=== PATIENT | female | born 1990 | race Caucasian/White ===

== ENCOUNTER 2016-06-24 15:26 | Emergency (ER) | payer MEDICARE, BC, MEDICAID ==
[2016-06-24 15:43] VITALS: BP 135/71
--- NOTE | 2016-06-24 16:21 | EDM.PDOC ---
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 She is about 14 weeks gestation. She complains of abdominal pain for about the last 2 weeks. She describes it mostly in her left lower quadrant. She says when she presses against the uterus it hurts. 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 There's been no nausea vomiting no dysuria no vaginal bleeding. 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 Psychiatric History: Reports: Anxiety, Panic attack - Infectious Disease History Infectious Disease History: Reports: Chicken pox Social & Family History - Tobacco Use Smoking Status *Q: Former Smoker Years of Tobacco use: 8 Packs/Tins Daily: 0.2 Used Tobacco, but Quit: Yes Month Tobacco Last Used: 2 Second Hand Smoke Exposure: Yes - Caffeine Use Caffeine Use: Reports: Coffee - Alcohol Use Days Per Week of Alcohol Use: 2 Number of Drinks Per Day: 6 Total Drinks Per Week: 12 - Recreational Drug Use Recreational Drug Use: No - Living Situation & Occupation Living situation: Reports: single, with significant other, assisted living Occupation: disabled ED ROS GENERAL - Review of Systems Review Of Systems: ROS reveals no pertinent complaints other than HPI. ED EXAM - Physical Exam Exam: See Below Exam Limited By: No limitations General Appearance: alert, WD/WN, no apparent distress GI/Abdominal: other (Uterine size is barely palpable consistent with her dates. There some mild tenderness in the left lower quadrant which I think is probably some ligamentous tenderness. heart tones were normal.) Course - Vital Signs Last Recorded V/S: Last Vital Signs Temp 36.7 C 06/24/16 15:38 Pulse 91 06/24/16 15:38 Resp 18 06/24/16 15:38 BP 135/71 06/24/16 15:38 Pulse Ox Departure - Departure Time of Disposition: 16:19 Disposition: Home, Self-Care 01 Condition: good Clinical Impression: Abdominal pain during in second trimester Forms: ED Department Discharge Additional Instructions: This appears to be some ligamentous pain which is very common in . It' s not anything serious. Try taking regular Tylenol. Just follow the package instructions. get as much rest as you can. It's okay to continue working
== END 2016-06-24 16:40 | disposition home or self-care (01) ==
LOC: JP.ED 15:26
DX: O99.89 Other specified diseases and conditions complicating pregnancy, childbirth and the puerperium (principal); R10.32 Left lower quadrant pain; K21.9 Gastro-esophageal reflux disease without esophagitis; F41.9 Anxiety disorder, unspecified; Z88.2 Allergy status to sulfonamides; Z91.09 Other allergy status, other than to drugs and biological substances; Z87.891 Personal history of nicotine dependence; Z87.440 Personal history of urinary (tract) infections; Z3A.14 14 weeks gestation of pregnancy
CPT/HCPCS: 99283; 99284

== ENCOUNTER 2016-07-12 20:16 | Emergency (ER) | payer MEDICARE, BC, MEDICAID ==
[2016-07-12 20:27] VITALS: BP 131/85
--- NOTE | 2016-07-12 20:48 | EDM.PDOC ---
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 She is rating it at a 7. She works in [employer] in [place] and she does do some lifting. She has no spotting or change in discharge. Timing/Duration: Reports: Hour(s):, Other ( started to have the pain at work today. ) Location: [facility] Quality: Reports: cramping, other ( comes and goes. ) Associated Symptoms (-Female): Reports: denies other symptoms - Related Data Allergies/ADRs: Allergies Allergy/AdvReac Type Severity Reaction Status Date / Time shrimp Allergy Difficulty Verified 06/03/16 18:57 Swallowing Sulfa (Sulfonamide Allergy Rash Verified 06/03/16 18:57 Antibiotics) Home Meds: Home Meds Acetaminophen [Tylenol] 1 - 2 tab PO ASDIRECTED PRN 05/07/15 [History] Vits #93/Iron Fum/FA [ Formula Tablet] 1 tab PO BEDTIME [History] Past Medical History HEENT History: Reports: Impaired vision Gastrointestinal History: Reports: GERD Genitourinary History: Reports: UTI, recurrent 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 Psychiatric History: Reports: Anxiety, Panic attack - Infectious Disease History Infectious Disease History: Reports: Chicken pox Social & Family History - Tobacco Use Smoking Status *Q: Never Smoker Years of Tobacco use: 8 Packs/Tins Daily: 0.2 Used Tobacco, but Quit: Yes Month Tobacco Last Used: 2 Second Hand Smoke Exposure: Yes - Caffeine Use Caffeine Use: Reports: Coffee - Alcohol Use Days Per Week of Alcohol Use: 2 Number of Drinks Per Day: 6 Total Drinks Per Week: 12 - Recreational Drug Use Recreational Drug Use: No - Living Situation & Occupation Living situation: Reports: single, with significant other, assisted living Occupation: disabled ED ROS GENERAL - Review of Systems Review Of Systems: See Below Constitutional: Reports: no symptoms HEENT: Reports: No symptoms Respiratory: Reports: No Symptoms Cardiovascular: Reports: No symptoms Endocrine: Reports: no symptoms GI/Abdominal: Reports: Other ( Pt has had normal bms. ) : Reports: no symptoms Musculoskeletal: Reports: no symptoms Skin: Reports: no symptoms ED EXAM, GI/ABD - Physical Exam Exam: See Below Text/Narrative:: Pt has tenderness in the left abdoman near the suprapupic area. She has no masses present. heart tones were difficult to hear. Exam Limited By: No limitations General Appearance: alert, anxious Ears: normal TMs Nose: normal inspection Throat/Mouth: Normal inspection Head: atraumatic Neck: normal inspection Respiratory/Chest: no respiratory distress Cardiovascular: regular rate, rhythm GI/Abdominal: soft, other ( tender in the left abdoman. ) (Female) Exam: Deferred Rectal (Female) Exam: Deferred Back Exam: normal inspection Extremities: normal inspection Course - Vital Signs Last Recorded V/S: Last Vital Signs Temp 36.8 C 07/12/16 20:26 Pulse 99 07/12/16 20:26 Resp 16 07/12/16 20:26 BP 131/85 07/12/16 20:26 Pulse Ox 98 07/12/16 20:26 - Orders/Labs/Meds Orders: Active Orders 24 hr Category Date Time Status OB Ltd 1 or More Fetus [US] Stat Exams 07/12/16 20:52 Ordered CULTURE URINE [RM] Stat Lab 07/12/16 21:58 Uncollected CULTURE URINE [RM] Stat Lab 07/12/16 22:00 Received Labs: Laboratory Tests 07/12/16 07/12/16 07/12/16 Range/Units 20:42 20:42 20:55 WBC 11.8 H (4.5-11.0) K/uL RBC 4.45 (3.30-5.50) M/uL Hgb 12.7 (12.0-15.0) g/dL Hct 36.2 (36.0-48.0) % MCV 81 (80-98) fL MCH 29 (27-31) pg MCHC 35 (32-36) % Plt Count 129 L (150-400) K/uL Neut % (Auto) 70 H (36-66) % Lymph % (Auto) 17 L (24-44) % Maury % (Auto) 6 (2-6) % Eos % (Auto) 7 H (2-4) % Baso % (Auto) 0 (0-1) % Sodium 137 L (140-148) mmol/L Potassium 3.6 (3.6-5.2) mmol/L Chloride 104 (100-108) mmol/L Carbon Dioxide 21 (21-32) mmol/L Anion Gap 15.6 H (5.0-14.0) mmol/L BUN 14 (7-18) mg/dL Creatinine 0.7 (0.6-1.0) mg/dL Est Cr Clr Drug Dosing 87.48 mL/min Estimated GFR (MDRD) > 60 (>60) Glucose 98 (74-106) mg/dL Calcium 9.5 (8.5-10.1) mg/dL Total Bilirubin 0.2 (0.2-1.0) mg/dL AST 18 (15-37) U/L ALT 30 (12-78) U/L Alkaline Phosphatase 48 (46-116) U/L Total Protein 7.5 (6.4-8.2) g/dL Albumin 3.6 (3.4-5.0) g/dL Globulin 3.9 H (2.3-3.5) g/dL Albumin/Globulin Ratio 0.9 L (1.2-2.2) Urine Color Yellow Urine Appearance Clear Urine pH 5.0 (4.5-8.0) Ur Specific [place] 1.025 (1.008-1.030) Urine Protein Trace (NEGATIVE) mg/dL Urine Glucose (UA) Normal (NEGATIVE) mg/dL Urine Ketones 15 H (NEGATIVE) mg/dL Urine Occult Blood Negative (NEGATIVE) Urine Nitrite Negative (NEGATIVE) Urine Bilirubin Negative (NEGATIVE) Urine Urobilinogen Normal (NORMAL) mg/dL Ur Leukocyte Esterase Negative (NEGATIVE) Urine RBC 0-5 (0-5) Urine WBC 0-5 (0-5) Ur Epithelial Cells Many Amorphous Sediment Rare Urine Bacteria Many Urine Mucus Few - Re-Assessments/Exams Free Text/Narrative Re-Assessment/Exam: 07/12/16 22:08 pt had a cbc which looked good except her platlets are borderline. Her chems were good. Her urine had some bacteria but very few wbcs will culture the urine. The us showed a active 17 week fetus. Placenta looked good. Departure - Departure Time of Disposition: 22:10 Disposition: Home, Self-Care 01 Condition: fair Clinical Impression: 17 weeks gestation of , Pain of round ligament during Forms: ED Department Discharge Care Plan Goals: rtc if gets worse avoid alot of lifting. - My Orders Last 24 Hours: My Active Orders 07/12/16 20:52 OB Ltd 1 or More Fetus [US] Stat 07/12/16 21:58 CULTURE URINE [RM] Stat 07/12/16 22:00 CULTURE URINE [RM] Stat - Assessment/Plan Last 24 Hours: My Active Orders 07/12/16 20:52 OB Ltd 1 or More Fetus [US] Stat 07/12/16 21:58 CULTURE URINE [RM] Stat 07/12/16 22:00 CULTURE URINE [RM] Stat
[2016-07-12] MEDS ORDERED: Acetaminophen 325 MG Tab PO ONE (22:12)
== END 2016-07-12 22:22 | disposition home or self-care (01) ==
LOC: JP.ED 20:16
DX: O26.892 Other specified pregnancy related conditions, second trimester (principal); R10.2 Pelvic and perineal pain; F41.9 Anxiety disorder, unspecified; K21.9 Gastro-esophageal reflux disease without esophagitis; Z87.440 Personal history of urinary (tract) infections; Z88.2 Allergy status to sulfonamides; Z91.018 Allergy to other foods; Z3A.17 17 weeks gestation of pregnancy
CPT/HCPCS: 36415; 76815; 80053; 81001; 85025; 87086; 99283; 99284-25